=== PATIENT | female | born 1995 | race African-American/Black ===

== ENCOUNTER 2017-07-16 02:25 | Emergency (ER) | payer MEDICAID ==
[~2017-07-16] VITALS: Ht 157.5 cm; Wt 43.0 kg
[~2017-07-16 02:25] MED LIST: PRENATAL
[2017-07-16 02:30] VITALS: BP 103/65
== END 2017-07-16 04:00 | disposition left against medical advice (07) ==
LOC: ER 02:25
DX: R11.2 Nausea with vomiting, unspecified (principal); Z53.21 Procedure and treatment not carried out due to patient leaving prior to being seen by health care provider

== ENCOUNTER 2017-07-16 07:53 | Emergency (ER) | payer MEDICAID ==
[~2017-07-16] VITALS: Ht 154.9 cm; Wt 55.0 kg
[2017-07-16] MEDS ORDERED: SODIUM CHLORIDE 0.9% 1,000 ML IV ONE (11:30)
[2017-07-16] MEDS ORDERED: ONDANSETRON HCL 4MG/2ML VIAL IV STA (11:30)
[2017-07-16] MEDS ORDERED: MORPHINE SULFATE 4 MG/ML CPJ (NOT FOR IM USE) IV STA (11:30)
[2017-07-16] MEDS ORDERED: FAMOTIDINE 20MG/2ML VIAL IV ONE (11:45)
[2017-07-16 11:46] LABS: HEMATOCRIT. 41.3 % (36.0-48.0); HEMOGLOBIN. 13.6 g/dL (12.0-16.0); MEAN CORPUSCULAR HEMOGLOBIN 29.4 pg (28.0-32.0); MEAN PLATELET VOLUME 9.2 fl (7.4-10.4); PLATELET 186 x1000/uL (130-400); RED BLOOD CELL COUNT 4.64 mill/uL (4.2-5.4); RED CELL DISTRIBUTION WIDTH 13.2 % (11.6-14.6)
[2017-07-16 11:51] LABS: CLARITY URINE CLEAR (CLEAR); COLOR URINE DARK YELLOW (YELLOW); KETONES URINE TRACE (NEGATIVE); LEUKOCYTE ESTERASE URINE NEGATIVE (NEGATIVE); NITRITE URINE NEGATIVE (NEGATIVE); OCCULT BLOOD URINE NEGATIVE (NEGATIVE); PH URINE 5.5 (4.5-8.0); PROTEIN URINE 2+ (NEGATIVE); SPECIFIC GRAVITY URINE 1.034 (1.005-1.030)
[2017-07-16 11:53] LABS: CHLORIDE 97 mEq/L (98-107)
[2017-07-16 12:04] LABS: INR 1.1; PROTHROMBIN TIME 11.4 sec (9.4-11.6)
[2017-07-16 12:09] LABS: PLATELET ESTIMATE NORMAL
[2017-07-16 12:34] LABS: HCG SCREEN NEGATIVE
[2017-07-16] MEDS ORDERED: MAGNESIUM/ALUMINUM HYDROXIDE/SIMETHICONE 30ML UDC PO STA (13:03)
[2017-07-16] MEDS ORDERED: VISCOUS LIDOCAINE 2% 15 ML UDC PO STA (13:03)
[2017-07-16 14:00] VITALS: BP 102/58
[2017-07-16] MEDS ORDERED: PROCHLORPERAZINE 10MG/2ML VIAL IV ONE (14:15)
== END 2017-07-16 15:04 | disposition home or self-care (01) ==
LOC: ER 08:34
DX: R10.13 Epigastric pain (principal); R11.2 Nausea with vomiting, unspecified; F12.10 Cannabis abuse, uncomplicated
CPT/HCPCS: 36415; 76705; 80053; 81003; 83690; 84703; 85025; 85610; 96361; 96374; 96375; 99285; J0780; J2270; J2405; J3490; J7030; Z7610